=== PATIENT | female | born 1975 | race Caucasian/White ===

== ENCOUNTER → 2023-06-16 14:43 | Outpatient (CLI) | payer OTHER, SELFPAY ==
--- NOTE | ~2023-06-16 | MR_ITS ---
EXAMINATION: MR brain/brain stem wo/w con DATE: 06/16/2023 15:22 INDICATION: Benign neoplasm of cerebral meninges. TECHNIQUE: Magnetic resonance imaging (MRI) of the brain and brainstem was performed without with 15 mL MultiHance intravenous contrast. COMPARISON: None. FINDINGS: There is a 2.0 x 1.8 x 0.6 cm enhancing extra-axial mass overlying left frontal lobe, consi stent with a meningioma. There are scattered areas of nonspecific increased T2-weighted signal intens ity in the cerebral white matter, which is within normal limits for the patient's age. There is no ac [place] ischemic infarct or intracranial hemorrhage. The ventricles are normal in size. The paranasal sin uses are clear. The orbits are normal. The mastoid air cells are normal. IMPRESSION: 1. 2.0 cm meningioma overlying left frontal lobe. Reviewed, dictated and finalized at location A. S SUPPORT REPRESENTATIVE
== END ==
DX: D32.0 Benign neoplasm of cerebral meninges (principal)
CPT/HCPCS: 70553; A9577